=== PATIENT | female | born 1995 | race Asian ===

== ENCOUNTER 2018-01-02 05:03 | Emergency (ER) | payer OTHER ==
[~2018-01-02] VITALS: Ht 160 cm; Wt 65.0 kg
[2018-01-02 05:07] VITALS: TEMP 36.6; Ht 160 cm; Wt 65.0 kg
--- NOTE | 2018-01-02 05:25 | EMERGENCY ROOM VISIT NOTE ---
History Report prepared by Gonzalez: Edgar Cowan Under the Supervision of: Dr. Iesha Harvey D.O. First contact with patient: 05:13 Chief Complaint: HEAD INJURY (MINOR) Stated Complaint: HEADACHE, PASSED OUT HIT HEAD History of Present Illness The patient is a 22 year old female who presents to the Emergency Room with complaints of a persistent head injury secondary to syncope 0430 this morning. She notes that her friends came to surprise her with her boyfriend from [place], [place]. She reports letting them in and having about a ten minute conversation before letting her friend go home. She states she shut the door and when she turned around she tried to tell her boyfriend that she was going to pass out, though she passed out before she could finish her sentence. She reports a head injury against the door hinge. She states that she felt nauseous and vomited after she came to. She notes that she felt dizzy and lightheaded prior to the syncope episode. 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 She reports they found the cyst via MRI in 2011. She has a history of syncope and concussions. She notes that she felt normal before she went to bed. She took her medication for insomnia and anxiety. She currently feels sleepy. She reports eating and drinking well. Her LNMP was last week. She denies any leg cramps or swelling. She denies any other injuries. Source of History: patient Onset: 429 this morning Position: head Quality: other (injury) Timing: other (persistent) Associated Symptoms: + LOC, + nausea, + vomiting Note: She notes syncope, lightheadedness, and dizziness. She denies any leg cramps, leg swelling, or other injuries. Review of Systems See HPI for pertinent positives & negatives. A total of 10 systems reviewed and were otherwise negative. Past Medical & Surgical Medical Problems: (1) Anxiety (2) arachnoid cyst of pineal gland (3) Concussion (4) Insomnia (5) Syncope Family History No pertinent family history Social History Smoking Status: Never Smoker Smokeless Tobacco Use: No Alcohol Use: none Drug Use: none Marital Status: in relationship Housing Status: lives with roommate Occupation Status: [employer] student Current/Historical Medications Scheduled Biotin (Biotin), Unknown Dose PO DAILY Control Pills ( Control Pills), 1 TAB PO DAILY Escitalopram Oxalate (Lexapro), 20 MG PO DAILY Allergies Coded Allergies: No Known Allergies (Unverified , 01/02/18) Physical Exam Vital Signs Date Time Temp Pulse Resp B/P (MAP) Pulse Ox O2 Delivery O2 Flow Rate FiO2 01/02/18 06:59 65 20 97/66 99 01/02/18 06:09 66 16 102/64 99 01/02/18 05:38 65 01/02/18 05:07 36.6 61 20 86/64 99 Room Air Physical Exam HEENT: Head - normocephalic. 2 cm v-shaped laceration to the right occipital region of the scalp. Pupils are equal, round, and reactive to light. Extraocular eye muscles are intact, and sclera are anicteric. Nose - moist nasal mucosa without discharge. Mouth - moist buccal mucosa. Oropharynx is nonerythematous and there is no tonsillar exudate or edema noted. Neck: Supple; no JVD, nuchal rigidity, or cervical lymphadenopathy. Heart: Regular rate and rhythm. There is a normal S1 and S2 with no murmurs, clicks, or gallops appreciated. Lungs: Clear to auscultation bilaterally with no wheezes, rales, or rhonchi. Abdomen: Soft, completely nontender, nondistended, with good bowel sounds. There are no palpable pulsatile masses or hepatosplenomegaly. There is no guarding, rigidity, or rebound noted. Extremities: No evidence of cyanosis, clubbing, or edema. There are easily palpable peripheral pulses. Skin: warm and dry with good turgor and no rashes. Medical Decision & Procedures Laboratory Results 01/02/18 05:30 01/02/18 05:30 Test 01/02/18 05:30 01/02/18 05:40 Red Blood Count 3.98 M/uL (4.2-5.4) Mean Corpuscular Volume 89.2 fL (80-100) Mean Corpuscular Hemoglobin 31.4 pg (25-34) Mean Corpuscular Hemoglobin Concent 35.2 g/dl (32-36) RDW Standard Deviation 37.8 fL (36.4-46.3) RDW Coefficient of Variation 11.6 % (11.5-14.5) Mean Platelet Volume 9.7 fL (7.4-10.4) Anion Gap 6.0 mmol/L (3-11) Est Creatinine Clear Calc Drug Dose 127.0 ml/min Estimated GFR () 147.6 Estimated GFR (Non- 127.3 BUN/Creatinine Ratio 22.2 (10-20) Calcium Level 8.8 mg/dl (8.5-10.1) Urine Color YELLOW Urine Appearance CLEAR (CLEAR) Urine pH 6.5 (4.5-7.5) Urine Specific [place] 1.013 (1.000-1.030) Urine Protein NEG (NEG) Urine Glucose (UA) NEG (NEG) Urine Ketones NEG (NEG) Urine Occult Blood NEG (NEG) Urine Nitrite NEG (NEG) Urine Bilirubin NEG (NEG) Urine Urobilinogen NEG (NEG) Urine Leukocyte Esterase NEG (NEG) Urine Test NEG (NEG) Laboratory results per my review. Procedure Location: Scalp Total length: 2 cm Complexity: Simple Verbal consent was obtained after the risks and benefits were explained, including but not limited to bleeding, scarring, infection, pain, and bone/ nerve damage. At this time, the risks of the procedure are less than the risks of NOT performing the procedure. A time out was taken and the correct patient and site identified. The scalp was prepped with Betadine. Copious irrigation was performed using saline. The skin was re-prepped with Betadine, the hair cleared from the wound, and a sterile field set. The wound was explored for foreign bodies and none found. Debridement was not performed. The wound edges were approximated using 2 guerita surgical guerita in the standard fashion. Hemostasis and excellent approximation was achieved. Antibacterial ointment and a sterile dressing applied. Detailed wound care instructions and signs and symptoms of infection reviewed with the patient. No complications and the patient tolerated the procedure well. ECG Per My Interpretation Indication: syncope Rate (beats per minute): 58 Rhythm: sinus bradycardia Findings: no acute ischemic change, other (Evidence of early repolarization.) ED Course 0520: Past medical records reviewed. The patient was evaluated in room B9. A complete history and physical exam was performed. Labs were drawn as above. 0612: I reassessed the patient at this time. I performed a staple laceration repair. Please see procedure note. I discussed the results and treatment plan with the patient. I answered all pertaining questions that she had. She expressed understanding and verbalized agreement. The patient will be discharged home. 0635: I reassessed the patient at this time. I discussed the results and treatment plan with the patient. I answered all pertaining questions that she had. She expressed understanding and verbalized agreement. The patient will be discharged home. Medical Decision The patient is a 22 year old female who presents to the ED with head injury. Differential diagnosis includes syncope, dehydration, scalp , and closed head injury. Lab results showed: Stable H&H. No leukocytosis. Normal renal function. Normal Glucose. Negative urinalysis. Negative . This is a 22-year-old female patient who has a history of syncope and concussion. The patient suffered a syncopal episode when she fell backwards striking her head. She denies any significant head pain at this time. She did not injure any other part of her body during this event. The scalp wound was repaired with guerita. I have encouraged the patient to take well-balanced diet and plenty of clear liquids. She should rest with her head elevated to minimize pain. Medication Reconcilliation Current Medication List: was personally reviewed by me Blood Pressure Screening Patient's blood pressure: Normal blood pressure Impression Primary Impression: Syncope Additional Impression: Scalp laceration Scribe Attestation The scribe's documentation has been prepared under my direction and personally reviewed by me in its entirety. I confirm that the note above accurately reflects all work, treatment, procedures, and medical decision making performed by me. Departure Information Dispostion Home / Self-Care Referrals [facility] Forms HOME CARE DOCUMENTATION FORM, IMPORTANT VISIT INFORMATION Patient Instructions ED Laceration Scalp Stitch Or Stap, [facility], Syncope Additional Instructions Rest with your head elevated to minimize pain in the head. Keep the wound clean. Have the guerita removed in 10 days Problem Qualifiers Primary Impression: Syncope Syncope type: unspecified Qualified Codes: R55 - Syncope and collapse Additional Impression: Scalp laceration Encounter type: initial encounter Qualified Codes: S01.01XA - Laceration without foreign body of scalp, initial encounter
[2018-01-02] MEDS ORDERED: BCPILLS PO (05:28)
[2018-01-02] MEDS ORDERED: ESCI1TAB10 PO (05:28)
[2018-01-02] MEDS ORDERED: BIOT1CAP8 PO (05:29)
[2018-01-02 06:03] LABS: HEMATOCRIT 35.5 % (37-47); HEMOGLOBIN 12.5 g/dL (12.0-16.0); MEAN CELL VOLUME 89.2 fL (80-100); MEAN CORPUSCULAR HEMOGLOBIN 31.4 pg (25-34); MEAN CORPUSCULAR HGB CONC 35.2 g/dl (32-36); MEAN PLATELET VOLUME 9.7 fL (7.4-10.4); PLATELET COUNT 173 K/uL (130-400); RED CELL DISTRIBUTION WIDTH CV 11.6 % (11.5-14.5); RED CELL DISTRIBUTION WIDTH SD 37.8 fL (36.4-46.3); WHITE BLOOD COUNT 6.45 K/uL (4.8-10.8)
[2018-01-02 06:28] LABS: CALCIUM 8.8 mg/dl (8.5-10.1); CREATININE 0.63 mg/dl (0.60-1.20); POTASSIUM 3.5 mmol/L (3.5-5.1)
[2018-01-02 06:59] VITALS: BP 97/66; PULSE 65; O2SAT 99
== END 2018-01-02 07:00 | disposition home or self-care (01) ==
LOC: C.EDB 05:05
DX: S01.01XA Laceration without foreign body of scalp, initial encounter (principal); W01.198A Fall on same level from slipping, tripping and stumbling with subsequent striking against other object, initial encounter; R55 Syncope and collapse; F41.9 Anxiety disorder, unspecified; G47.00 Insomnia, unspecified; G93.0 Cerebral cysts; Z87.820 Personal history of traumatic brain injury; Z79.3 Long term (current) use of hormonal contraceptives; Z79.899 Other long term (current) drug therapy